=== PATIENT | female | born 1970 | race Caucasian/White ===

== ENCOUNTER 2021-06-17 00:54 | Emergency (ER) | payer OTHER, SELFPAY ==
[2021-06-17] VITALS (11 sets, daily range): BP systolic 143–189; BP diastolic 71–100; PULSE 68–81; RESP 16–22; O2SAT 94–97; BMI 45.1
--- NOTE | 2021-06-17 00:58 | ED_ITS ---
HPI - Chest Pain General: Chief Complaint: Chest Pain Stated Complaint: Chest Pains Time Seen by Provider: 06/17/21 00:55 History of Present Illness: Ms Arriaga is a 50-year-old lady with significant past medical history of hypertension and type 2 diabetes [id number] who presents to the emergency department due to chest discomfort. She endorses over the past few days a pulled muscle type feeling around her left shoulder blade and thoracic back however this resolved until this evening. At approximately 11 PM, while at work during rounds, she developed return of pain including left anterior chest pain with mild radiation to the shoulder. This feels sharp and is worse with movement and deep inspiration. She has mild shortness of breath however no other typical cardiac features. She does endorse one episode of chest pain a number of years ago however this was not evaluated at that time. Symptom intensity is moderate. Course has persisted. No other specific changes in health, exacerbating, or alleviating factors identified. Onset (ago): hour(s) Timing of current episode: constant Onset: during exertion Pain location: left chest and other Pain radiation: left shoulder and left scapula Severity: moderate Quality: sharp Exacerbating factors: inspiration and movement Review of Systems General: Reports: 10 or more systems reviewed and unremarkable except in HPI and below PFSH ED PFSH: Medical History (Updated 06/17/21 @ 03:40 by Cecil Samuels MD) History of subdural hematoma HTN (hypertension) Type 2 diabetes mellitus Surgical History (Updated 06/17/21 @ 01:10 by Cecil Samuels MD) History of craniotomy History of knee surgery Family History (Updated 06/17/21 @ 01:10 by Cecil Samuels MD) Denies family history of Family history of premature coronary artery disease Social History (Updated 06/17/21 @ 01:10 by Cecil Samuels MD) Smoking and tobacco status: never smoked Physical Exam Const: COMMON NORMALS: alert GENERAL APPEARANCE: cooperative and well developed NUTRITIONAL APPEARANCE: obese HENMT: COMMON NORMALS: normocephalic and atraumatic HEAD & SCALP: normocephalic and atraumatic Eye: COMMON NORMALS: conjunctivae normal CONJUNCTIVA: Yes conjunctivae normal SCLERA: sclerae normal Neck/C-Spine: COMMON NORMALS: supple GENERAL: Yes trachea midline Resp: COMMON NORMALS: normal respiratory effort EFFORT & INSPECTION: Yes able to speak in complete sentences Cardio: COMMON NORMALS: regular rate and regular rhythm RATE: regular rate RHYTHM: regular rhythm GI: COMMON NORMALS: Soft to palpation PALPATION: Yes Soft to palpation and No Tenderness to palpation present (GI) PERCUSSION: normal to percussion Extremity: GENERAL: Yes normal exam except as noted and No edema Neuro: COMMON NORMALS: moves all extremities SENSORIUM/ORIENTATION: Yes alert and No Orientation impaired Psych: COMMON NORMALS: mental status grossly normal and Normal thought process present THOUGHT PROCESS: Normal thought process present Course ED course: - Patient was seen and evaluated by me at bedside - Patient placed on cardiac monitors, IV access obtained - Initial evaluation notable for exam as above - Labs and xrays personally interpreted by me. EKGs from 0105 and 0309 personally interpreted by me. Sinus rhythm with nonspecific ST segment abnor malities. No STEMI. - Aspirin given - Labs notable for mild leukocytosis, metabolic panel with perhaps mild evidence of dehydration, hypokalemia with potassium replenishment ordered. Patient does have transaminitis of unclear etiology, she does endorse history on recent labs of similar. There are no specific biliary or hepatic elements of history, no specific right upper quadrant tenderness and lipase is normal. - Imaging notable for mild bibasilar opacities, questionable artifact regarding overlying tissue. No specific infectious symptoms endorsed in history making bilateral pneumonia felt to be unlikely. - Upon serial reexamination after treatment the patient was improved - Based on patient history, evaluation, and testing as interpreted the most likely cause of the patient's condition is chest pain of unclear etiology. - The results of ED evaluation were discussed with the patient including possible disposition options. I discussed risk stratification by heart score including that patient is moderate risk and does require further cardiac evaluation. She prefers to have this done in the outpatient setting and since she lives closer to [place] desires to have this arranged by her primary care provider. I discussed prescriptions and/or symptomatic cares (if applicable) including appropriate and responsible use, followup plan, and return precautions. The patient verbalized understanding and felt safe for discharge. - Patient discharged in satisfactory condition. Note: Click bubbles or prepopulated ramey in note writing are used for assistance with data collection and billing and are inherently more limited than narrative and other text portions of this note. Please use narrative for additional clinical history and defer to narrative/free test for any case of contradictory information. If information appears in only free text or click bubble it shoul d be considered present or absent as reported. Please contact note racebook writer for clarifications of clinical information or contradictory information. MDM is a brief summary, contradictory or erroneous seeming information should be clarified and full note should be reviewed. Vital Signs: Vital signs: Vital Signs Pulse Rate 73 06/17/21 03:48 Respiratory Rate 21 H 06/17/21 03:48 Blood Pressure 162/73 06/17/21 03:48 Pulse Oximetry 95 06/17/21 03:48 MDM - Chest Pain Medical Decision Making 50-year-old lady with history of hypertension, obesity, diabetes presenting with chest discomfort. Troponins negative. ED evaluation without obvious cause. Patient moderate risk by heart score. Offered admission which the patient declined in preference of setting up an outpatient stress test closer to home. Discharged with strict return precautions. Medical Records I reviewed the patient's medical records. Lab Data I reviewed the patient's lab results. : 06/17/21 01:05 06/17/21 01:05 Radiology Impressions Chest X-Ray 06/17/21 01:01 IMPRESSION: Bibasilar ground-glass opacities that may be secondary to atelectasis or pneumonitis. Laboratory Results WBC 10.8 10^3/uL (4.0-10.0) H 06/17/21 01:05 RBC 4.22 10^6/uL (4.1-5.3) 06/17/21 01:05 Hgb 12.4 g/dL (11.5-15.3) 06/17/21 01:05 Hct 38.7 % (37.0-47.0) 06/17/21 01:05 MCV 91.7 fl (81-99) 06/17/21 01:05 MCH 29.4 pg (28.0-34.0) 06/17/21 01:05 MCHC 32.0 g/dL (30.0-36.0) 06/17/21 01:05 RDW 14.1 % (12.1-15.1) 06/17/21 01:05 Plt Count 314 10^3/cmm (130-400) 06/17/21 01:05 MPV 10.2 fL (7.4-10.4) 06/17/21 01:05 Neut % (Auto) 58.8 % 06/17/21 01:05 Lymph % (Auto) 31.0 % 06/17/21 01:05 Evangeline % (Auto) 5.2 % 06/17/21 01:05 Eos % (Auto) 3.6 % 06/17/21 01:05 Baso % (Auto) 0.8 % 06/17/21 01:05 Neut # (Auto) 6.33 10^3/uL (1.8-7.7) 06/17/21 01:05 Lymph # (Auto) 3.3 10^3/uL (0.8-4.8) 06/17/21 01:05 Evangeline # (Auto) 0.6 10^3/uL (0.2-0.9) 06/17/21 01:05 Eos # (Auto) 0.4 10^3/uL (0.0-0.8) 06/17/21 01:05 Baso # (Auto) 0.1 10^3/uL (0.0-0.1) 06/17/21 01:05 Nucleated RBC % (auto) 0 % 06/17/21 01:05 Nucleated RBCs # 0.0 /100WBC 06/17/21 01:05 Sodium 135 mmol/L (136-145) L 06/17/21 01:05 Potassium 3.3 mmol/L (3.5-5.1) L 06/17/21 01:05 Chloride 95 mmol/L (98-107) L 06/17/21 01:05 Carbon Dioxide 24 mmol/L (22-29) 06/17/21 01:05 Anion Gap 19.3 (5-19) H 06/17/21 01:05 BUN 20 mg/dL (6-20) 06/17/21 01:05 Creatinine 0.6 mg/dL (0.5-0.9) 06/17/21 01:05 GFR Calculation 105.0 mL/min (90-130) 06/17/21 01:05 Glucose 235 mg/dL (65-115) H 06/17/21 01:05 Calculated Osmolality 290 mOsm/kg (285-295) 06/17/21 01:05 Calcium 10.3 mg/dL (8.5-10.5) 06/17/21 01:05 Total Bilirubin 0.3 mg/dL (0.15-1.2) 06/17/21 01:05 AST 93 U/L (0-32) H 06/17/21 01:05 ALT 102 U/L (0-33) H 06/17/21 01:05 Alkaline Phosphatase 91 IU/L (35-105) 06/17/21 01:05 Troponin T Baseline 9 ng/L (0-10) 06/17/21 01:05 Troponin T 120 Minute 8.79 ng/L (0-10) 06/17/21 03:01 NT-Pro-B Natriuret Pep 84 pg/mL (0-125) 06/17/21 01:05 Total Protein 8.1 g/dL (6.6-8.7) 06/17/21 01:05 Albumin 4.7 g/dL (3.5-5.2) 06/17/21 01:05 Globulin 3.4 g/dL (1.3-4.6) 06/17/21 01:05 Lipase 36 U/L (13-60) 06/17/21 01:05 Discharge Plan Discharge Patient Disposition: Home Clinical Impression: Chest pain, Transaminitis, Hypokalemia, Hyperglycemia Condition: Stable Discharge Orders: Discharge ED (Routine); Ordered 06/17/21 Ordered By: Cecil Samuels Discharge Diet: Usual diet Discharge Activity: Resume usual activity Patient Instructions: Chest Pain (ED), Hypokalemia (ED), Hypertension (ED), Diabetic Hyperglycemia (ED) Activity Restrictions/Additional Instructions: Thank you for visiting the emergency department. You were seen and evaluated for chest pain. The exact cause of your symptoms is unclear however as discussed you are moderate risk by HEART score and do require further testing which you are electing to arrange in the outpatient setting. Please follow-up with your primary care provider. Your blood glucose on labs is 235 without evidence of diabetic ketoacidosis. Your potassium was 3.3. Additional findings as discussed are mildly elevated transaminases which can be also evaluated in the outpatient setting. Please return to the emergency department for anything that you are concerned about and feel needs emergency department evaluation. Coding Level of Care Code ED Baby Sitter for Rashid Fwamrit Exam Comprehensive
--- NOTE | 2021-06-17 01:01 | ECG_ITS ---
[facility] Test Date: 2021-06-17 Pat Name: Desiree Arriaga Department: Room: Gender: Female [employer]: : 1970 Requested By: Cecil Samuels Order Number: [id number] Elizabeth MD: Kathy Schmitz M.D. Measurements Intervals [place] Rate: 84 P: 36 RI: 155 QRS: 0 QRSD: 97 T: 7 QT: 387 QTc: 458 Interpretive Statements SINUS RHYTHM No previous ECG available for comparison Electronically Signed On 06-17-2021 23:16:18 CDT by Kathy Schmitz M.D. [email or web address]
--- NOTE | 2021-06-17 01:01 | XRR_ITS ---
PROCEDURE INFORMATION: Exam: XR Chest Exam date and time: 06/17/2021 1:20 AM Age: 50 years old Clinical indication: Chest pressure; Patient HX: C/O chest pain. Hypertensive on monitor. TECHNIQUE: Imaging protocol: XR of the chest. Views: 1 view. COMPARISON: No relevant prior studies available. FINDINGS: Tubes, catheters and devices: EKG monitoring leads overlie the thoracic wall. Lungs: Increased, ground-glass opacities are seen at the lung bases. Pleural spaces: No pleural effusion or pneumothorax. Heart/Mediastinum: Normal in size. Bones/joints: No acute fracture is identified. XR/XR chest 1V portable [id number] IMPRESSION: Bibasilar ground-glass opacities that may be secondary to atelectasis or pneumonitis.
[2021-06-17 01:10] LABS: Basophils # 0.1 10^3/uL (0.0-0.1); Basophils % 0.8 %; Eosinophils # 0.4 10^3/uL (0.0-0.8); Eosinophils % 3.6 %; Hematocrit 38.7 % (37.0-47.0); Hemoglobin 12.4 g/dL (11.5-15.3); Lymphocytes # 3.3 10^3/uL (0.8-4.8); Mean Corpuscular Hemoglobin 29.4 pg (28.0-34.0); Mean Corpuscular Volume 91.7 fl (81-99); Mean Platelet Volume 10.2 fL (7.4-10.4); Monocytes # 0.6 10^3/uL (0.2-0.9); Monocytes % 5.2 %; Neutrophils # 6.33 10^3/uL (1.8-7.7); Neutrophils % 58.8 %; Nucleated Red Blood Cells % 0 %; Platelet Count 314 10^3/cmm (130-400); Red Blood Count 4.22 10^6/uL (4.1-5.3); Red Cell Distribution Width 14.1 % (12.1-15.1); White Blood Count 10.8 10^3/uL (4.0-10.0)
[2021-06-17] MEDS: aspirin 81 mg Chew Tablet 324 MG PO (01:14)
[2021-06-17 01:40] LABS: Troponin(5th) Baseline 9 ng/L (0-10)
[2021-06-17 01:45] LABS: Alanine Aminotransferase 102 U/L (0-33); Albumin Level 4.7 g/dL (3.5-5.2); Alkaline Phosphatase 91 IU/L (35-105); Anion Gap 19.3 (5-19); Aspartate Amino Transferase 93 U/L (0-32); Blood Urea Nitrogen 20 mg/dL (6-20); Calcium 10.3 mg/dL (8.5-10.5); Carbon Dioxide 24 mmol/L (22-29); Chloride 95 mmol/L (98-107); Globulin 3.4 g/dL (1.3-4.6); Glucose 235 mg/dL (65-115); Lipase 36 U/L (13-60); NT Pro B Type Natriuretic Pept 84 pg/mL (0-125); Osmolality Calculated 290 mOsm/kg (285-295); Potassium 3.3 mmol/L (3.5-5.1); Sodium 135 mmol/L (136-145); Total Bilirubin 0.3 mg/dL (0.15-1.2); Total Protein 8.1 g/dL (6.6-8.7)
[2021-06-17 03:34] LABS: Troponin 5 2HR 8.79 ng/L (0-10)
[2021-06-17] MEDS: potassium chloride ER 20 mEq Tablet 40 MEQ PO (03:34)
[2021-06-17 04:37] LABS: Troponin 5 2HR Delta -0.21 ABS# (0-10)
== END 2021-06-17 03:50 | disposition home or self-care (01) ==
PROVIDERS: Emergency Provider Emergency Medicine
DX: R07.9 Chest pain, unspecified (principal); E87.6 Hypokalemia; E11.65 Type 2 diabetes mellitus with hyperglycemia; I10 Essential (primary) hypertension
CPT/HCPCS: 71045; 80053; 83690; 83880; 84484; 85025; 93005; 99283